=== PATIENT | female | born 1985 | race Caucasian/White ===

== ENCOUNTER → 2018-12-07 11:39 | Outpatient (CLI) | payer OTHER, SELFPAY ==
[2018-12-07 11:35] VITALS: BMI 41.1
--- NOTE | 2018-12-07 11:41 | RAD_ITS ---
STUDY: X-RAY - LEFT ANKLE REASON FOR EXAM: Female, 33 years old. Pain following injury. TECHNIQUE: 3 view(s) of the ankle. COMPARISON: None. FINDINGS: Normal visualized distal tibia and fibula. Normal medial and lateral malleoli. Normal tibiotalar articulation and ankle mortise. Plantar spur. The visualized subtalar, talonavicular, calcaneocuboid and tarsal articulations are normal. The soft tissue structures are unremarkable. RAD/Ankle min 3 Views IMPRESSION: Plantar spur. Electronically Signed: Torey Krishnamurthy, at 12:36 EDT , Service support ,
--- NOTE | 2018-12-07 11:41 | RAD_ITS ---
STUDY: X-RAY - LEFT FOOT CLINICAL: Female, 33 years old. Pain following injury. TECHNIQUE: 3 view(s) of the foot. COMPARISON: None. FINDINGS: There is a plantar calcaneal spur. Normal visualized subtalar, talonavicular, calcaneocuboid, tarsal and tarsometatarsal articulations. Normal metatarsi. There is degenerative arthrosis of the metatarsophalangeal joint of the hallux . Normal tibial and fibular sesamoid bones. Normal interphalangeal joint of the great toe. Normal phalanges of the great toe. Normal second through fifth metatarsophalangeal joints. Normal interphalangeal joints and phalanges of the lesser toes. There is non-specific soft tissue swelling of the foot. RAD/Foot min 3 Views IMPRESSION: Soft tissue swelling. No fracture is seen. Electronically Signed: Torey Krishnamurthy, at 12:37 EDT , Service support ,
== END ==
PROVIDERS: Family Provider Family Medicine; PCP Family Medicine; Referring Provider Physician Assistant; Visit Provider Physician Assistant
DX: S90.32XA Contusion of left foot, initial encounter (principal); S90.02XA Contusion of left ankle, initial encounter
CPT/HCPCS: 73610; 73630

== ENCOUNTER → 2021-01-22 07:19 | Outpatient (CLI) | payer MEDICAID, SELFPAY ==
[2020-12-30 09:24] VITALS: BMI 44.8
--- NOTE | 2021-01-22 07:22 | MRI_ITS ---
STUDY: MRI LEFT HIP REASON FOR EXAM: Left hip/groin pain for about 6 months, no specific injury. TECHNIQUE: Standardized fat and water weighted pulse sequences were obtained in all 3 orthogonal planes. COMPARISON: Radiographs 12/30/2020. FINDINGS: Normal hip joint without articular joint space narrowing. There is subchondral bone edema of the posterior aspect of the left acetabulum (inversion recovery coronal image 20; inversion recovery axial images 22-25). Normal labrum. Normal femoral head. Normal femoral neck and intratrochanteric region. Normal gluteus minimus, medius and iliopsoas tendons and distal insertions. There is no trochanteric, iliopsoas or iliopectineal bursitis. Normal superior and inferior pubic rami. Normal pubic symphysis. Normal ischial tuberosity. Normal origin of the hamstring tendons. Normal visualized iliac wing, sacroiliac joint, and sacral ala. There is a right adnexal cyst measuring 5 cm in length (inversion recovery coronal images 8-12). MRI/Lower Ext Joint Only (Routine) IMPRESSION: Subchondral bone edema of the posterior aspect of the left acetabulum. Right adnexal cyst. Electronically Signed: Kwame Canales MD at 9:19 EDT Tel , Service support ,
== END ==
PROVIDERS: PCP Nurse Practitioner Family; Referring Provider Physician Assistant; Visit Provider Physician Assistant
DX: M25.552 Pain in left hip (principal)
CPT/HCPCS: 73721

== ENCOUNTER 2022-09-08 11:00 | Outpatient (RCR) | payer MEDICAID, SELFPAY ==
--- NOTE | 2022-08-27 14:36 | HP.PTEVAL_ITS ---
Patient's Visit Information GIOVANNA GRIFFITH is a 37 year old F referred to Physical Therapy by JOSELIN NERI with a diagnosis of L hip pain. Date of Evaluation: 08/20/22 Physical Therapist: Vidal Fairchild DPT - Visit Plan Frequency: 2x /Week Duration: 4 Weeks Plan: Start with L hip strengthening as tolerated. Focus on glute med, core strength and hip ER. Progress as tolerated. May use US if needed. - Subjective Pt. is here today for her initial evaluation with diagnosis of L hip pain. PT. reports increased pain with walking, standing and lifting. Pt. is sleeping okay, but does occasionally wake her up. pt. denies N/T in either LE. Pt. does have an underlying systemic issues, but exact diagnosis is in process. 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 Pt. reports most of her pain in her groin. Pt. reports pain increases at times with prolonged sitting, then with prolonged standing. Pt. is hopeful to reduce symptoms in order to get back to all work and recreational activities without limitations. - Pain L hip Pain Intensity (Out of 10): 4 Pain Intensity Range: 3, 7 - Objective POSTURE: Pt. wide SHELIA in stance. Pt. had overall flexed posture. PALPATION: Pt. has increased tenderness at anterior L hip. Pt. has pain at L hip flexor, no glute medius pain. ROM: L hip: flexion 90deg increase NW, abd 45deg NE, ER 6 0deg increase NW, IR 10deg increase NW, ext 10deg increase NW. MMT: LLE: ankle 5/5 throughout; knee: ext 5-/5 mild increase in hip pain, flexion 5/5; hip: flexion 4/5 increase NW, abd 4/5 increase NW, ext 4/5 increase NW, ER 4/5 increase NW, IR 4/5 increase NW. Core strength: poor+. GAIT: Pt. ambulates well with mild increase NW - Special Tests L Hip Scour: Negative L Hip DON - Intraarticular Pathology: Positive L Hip FADDIR - Labrum: Positive L Hip Impingement Provocation - Labrum: Positive L Hip Ame - IT Band: Negative - Goals Goal 1:: LTG: Pt. to be I with HEP Goal Time Frame: 4-6 Weeks Goal 2:: STG: PT. to have full L hip ROM without increase in symptoms. Goal Time Frame: 2-4 Weeks Goal 3:: LTG: Pt. to sleep without increase in symptoms. Goal Time Frame: 2-4 Weeks Goal 4:: LTG: pt. to have increased L LE strength and core strength to 5/5 throughout. Goal Time Frame: 4-6 Weeks Goal 5:: LTG: Pt. to ambulate unlimited distances without increase in symptoms. Goal Time Frame: 2-4 Weeks - Rehabilitation Potential Physical Therapy Diagnosis: Pt. has signs and symptoms consistent with L hip pain. Pt. has marked anterior hip pain. I am leaning towards labral pathology vs impingement. Pt. would benefit from PT to increase her ROM and progress strength in order to get back to all work and recreational activities without limitations. Rehabilitation Potential: Good - Anticipated Interventions Patient/Client Instruction: Educate patient on: Condition, Plan of Care, Risk Factors, Benefits of Fitness Program For the Purpose of:: To improve safety, To improve health and function, To foster healthy habits, To improve decision making, To facilitate caregiver knowledge, To improve self management, To prevent re-injury, To improve ability to perform tasks related to life management Therapeutic Exercise to Include: Strength training, Power training, Endurance training, Body mechanics, Postural training, Flexibilty training, Passive ROM, Active ROM, Dynamic Lumbar Stabilization For the Purpose of:: To decrease pain, To decrease swelling/inflammation, To increase ROM, To improve nutrient delivery to tissue, To increase oxygenation perfusion, To improve muscle performance and motor function, To improve ability to perform ADL's, To decrease soft tissue restriction, To increase flexibility/ROM Manual Therapy Techniques to Include: Mobilization, Functional dry needling, Soft tissue mobilization For the Purpose of:: To decrease pain, To increase ROM, To improve nutrient delivery to tissue, To increase oxygenation perfusion, To improve muscle performance and motor function, To improve ability to perform ADL's Ultrasound (thermal/non thermal): Yes Thank you for the opportunity to evaluate your patient. For Medicare and Medicare HMO plans, please review the plan of care and approve it. It will need to be FAXED BACK to us at [phone] for Medicare purposes. For Medicare only, by signing this I certify the plan of care. Please let me know if there are questions or concerns regarding this plan of care. Physician Signature: Date:_
== END 2022-09-08 19:00 | disposition home or self-care (01) ==
LOC: PT 11:00
PROVIDERS: PCP Nurse Practitioner Family
DX: M25.552 Pain in left hip (principal)
CPT/HCPCS: 97110; 97161